=== PATIENT | female | born 1985 | race African-American/Black ===

== ENCOUNTER 2016-10-24 14:05 | Emergency (ER) | payer OTHER ==
[~2016-10-24] VITALS: Ht 160 cm; Wt 86.2 kg
[2016-10-24 14:07] VITALS: BP 123/70
[2016-10-24] MEDS ORDERED: CITRSOL8 PO (16:35)
[2016-10-24] MEDS ORDERED: NAPR500T PO (16:35)
== END 2016-10-24 16:41 | disposition left against medical advice (07) ==
LOC: M ED 16:10
DX: R10.2 Pelvic and perineal pain (principal); K59.00 Constipation, unspecified; Z88.0 Allergy status to penicillin; Z88.1 Allergy status to other antibiotic agents

== ENCOUNTER → 2016-10-24 | Outpatient (CLI) | payer OTHER ==
[~2016-10-24] MED LIST: CITRSOL8 PO; NAPR500T PO
--- NOTE | 2016-10-24 13:21 | REP ---
Clinical: Abdominal pain and constipation. Technique: Two supine views of the abdomen and pelvis. Findings: Moderate to significant fecal stasis and presumed constipation noted. No obvious bowel obstruction or perforation. No organomegaly. No abnormal calcifications. Skeletal structures intact. Phleboliths suggested in the pelvis. Impression: Moderate to significant fecal stasis and presumed constipation. Signed by Naldo Garrison MD 10/24/2016 01:12 P
== END ==
LOC: M LRY 12:11
PROVIDERS: ATTEND Nurse Practitioner Family
DX: K59.00 Constipation, unspecified (principal)

== ENCOUNTER 2016-12-20 10:09 | Emergency (ER) | payer OTHER ==
[~2016-12-20] VITALS: Ht 160 cm; Wt 83.0 kg
[2016-12-20] MEDS ORDERED: NS 1,000 ML IV ONE (11:15)
[2016-12-20] MEDS ORDERED: MORPHINE 4 MG/ML 1ML SYRINGE IV PRN (11:15)
[2016-12-20] MEDS ORDERED: METOCLOPRAMIDE INJ 10MG/2ML VIAL (J2765) IV ONE (11:15)
[2016-12-20 11:30] LABS: BASO % 0.3 % (0.0-1.0); EOS # 0.1 K/mm3 (0.0-0.50); EOS % 1.3 % (0.0-3.0); LARGE UNSTAINED CELL # 0.1 K/mm3 (0.0-0.4); LYMPH # 1.8 K/mm3 (1.5-4.5); LYMPH % 16.5 % (24.0-44.0); MEAN CORPUSCULAR HEMOGLOBIN 28.8 pg (27.0-33.0); MEAN CORPUSCULAR HGB CONC 32.9 g/dl (32.0-36.5); MEAN CORPUSCULAR VOLUME 87.4 fl (80.0-96.0); MONO # 0.3 K/mm3 (0.0-0.8); MONO % 2.9 % (0.0-5.0); NEUTROPHILS # 8.3 K/mm3 (1.8-7.7); PLATELET COUNT, AUTOMATED 300 k/mm3 (150-450); RED CELL DISTRIBUTION WIDTH 12.3 % (11.5-14.5); WHITE BLOOD COUNT 10.7 K/mm3 (4.0-10.0)
[2016-12-20 11:44] LABS: CONTROL LINE HCG INT CTR LINE PRESENT
[2016-12-20 11:53] LABS: ALBUMIN 4.3 GM/DL (3.2-5.2); ALBUMIN/GLOBULIN RATIO 0.98 (1.00-1.93); ALKALINE PHOSPHATASE 61 U/L (45-117); ALT/SGPT 31 U/L (12-78); ANION GAP 7 MEQ/L (8-16); AST/SGOT 29 U/L (15-37); BILIRUBIN,DIRECT 0.1 MG/DL (0.0-0.2); BILIRUBIN,TOTAL 0.6 MG/DL (0.2-1.0); BLOOD UREA NITROGEN 9 MG/DL (7-18); CALCIUM LEVEL 9.4 MG/DL (8.5-10.1); CARBON DIOXIDE LEVEL 28 MEQ/L (21-32); CHLORIDE LEVEL 102 MEQ/L (98-107); CREATININE FOR GFR 0.99 MG/DL (0.55-1.02); GLOMERULAR FILTRATION RATE > 60.0 (>60); GLUCOSE, FASTING 82 MG/DL (70-105); POTASSIUM SERUM 3.6 MEQ/L (3.5-5.1); SODIUM LEVEL 137 MEQ/L (136-145); TOTAL PROTEIN 8.7 GM/DL (6.4-8.2)
[2016-12-20] MEDS ORDERED: ISOVUE-370 76% 100ML VIAL (Q9967) As Ordered ONE (12:04)
--- NOTE | 2016-12-20 12:31 | REP ---
Clinical: Lower abdominal pain. Findings: Lung bases clear. Visualized heart and pericardium normal. Liver, spleen, pancreas, gallbladder, bilateral adrenal glands and kidneys are normal for noncontrast evaluation. The enteric system is without obstruction or acute inflammatory process, and a normal terminal ileum and appendix are identified in the right lower quadrant. Pelvis demonstrates normal bladder and age-appropriate uterus/adnexa as well as normal rectosigmoid colon. No pelvic fluid or ascites. No free air. No obvious adenopathy. Vasculature normal. Surrounding musculoskeletal structures are intact. Incidental note is made of a 1 cm fat containing periumbilical hernia. Impression: No acute intra-abdominal or pelvic pathology appreciated. Signed by Naldo Garrison MD 12/20/2016 12:22 P
[2016-12-20] MEDS ORDERED: ZOFR4TAB3 PO (12:42)
[2016-12-20] MEDS ORDERED: IBUP80TA PO (12:42)
[2016-12-20 13:00] VITALS: BP 123/69
== END 2016-12-20 13:05 | disposition home or self-care (01) ==
LOC: M ED 11:42
DX: K42.9 Umbilical hernia without obstruction or gangrene (principal); R10.9 Unspecified abdominal pain; Z88.0 Allergy status to penicillin; Z88.1 Allergy status to other antibiotic agents
CPT/HCPCS: 74177; 80048; 80076; 81001; 84703; 85025; 96361; 96374; 96375; 99283; J2765; Q9967

== ENCOUNTER 2017-08-14 10:49 | Emergency (ER) | payer OTHER ==
[2017-08-14] MEDS: diphenhydrAMINE 50 MG CAP PO (11:15)
[2017-08-14] MEDS: predniSONE 20 MG TAB PO (12:29)
== END 2017-08-14 12:36 | disposition home or self-care (01) ==
LOC: M ED 10:49
DX: T78.40XA Allergy, unspecified, initial encounter (principal); R59.1 Generalized enlarged lymph nodes; Y92.9 Unspecified place or not applicable; Y93.9 Activity, unspecified; Z79.899 Other long term (current) drug therapy; Z88.0 Allergy status to penicillin
CPT/HCPCS: 87880